=== PATIENT | female | born 1945 | race Caucasian/White ===

== ENCOUNTER → 2023-09-01 17:21 | Outpatient (REF) | payer MEDICARE, OTHER, SELFPAY | LOC: HWWDC 17:21 | PROVIDERS: ATTENDING PHYSICIAN Internal Medicine | DX: Z12.31 Encounter for screening mammogram for malignant neoplasm of breast (principal) | CPT/HCPCS: 77063; 77067 ==

== ENCOUNTER → 2024-11-03 10:08 | Outpatient (REF) | payer MEDICARE, OTHER, SELFPAY | LOC: HWWDC 10:08 | PROVIDERS: ATTENDING PHYSICIAN Obstetrics & Gynecology; PRIMARYCARE PHYSICIAN Internal Medicine | DX: Z12.31 Encounter for screening mammogram for malignant neoplasm of breast (principal) | CPT/HCPCS: 77063; 77067 ==

== ENCOUNTER → 2024-11-17 08:48 | Outpatient (REF) | payer MEDICARE, OTHER, SELFPAY | LOC: HWRAD 08:48 | PROVIDERS: ATTENDING PHYSICIAN Obstetrics & Gynecology; FAMILY PHYSICIAN Internal Medicine | DX: Z78.0 Asymptomatic menopausal state (principal) | CPT/HCPCS: 77080 ==

== ENCOUNTER 2025-03-05 06:20 | Day surgery (SDC) | payer MEDICARE, OTHER, SELFPAY ==
--- NOTE | 2025-01-16 12:29 | CM ---
CM reviewed medical records.
Demographics: Confirmed
Living situation: lives alone
Support Person Post Operatively: Daughter and son in law
History of
VN: No
SNF: No
Outpatient: Patient has not decided
Has patient purchased required equipment: No, encouraged patient to review [facility]
PCP: Petr
Pharmacy: [facility]
Post Operative Discharge Plan: [facility], and then transition to outpatient PT, Staying with family post operatively.
--- NOTE | 2025-01-29 15:05 | CM ---
CM spoke with patient at length regarding her outpatient physical therapy appointments. CM advised patient that outpatient professional sports scout will call with her PAT appointments. Patient will further receive a call from [facility] regarding her VN appointments
post operatively.
CM further referred patient to [facility] patient packet regarding her DME. Encouraged patient to contact [facility] to assist with DME.
[2025-02-16 14:01] VITALS: BMI 29.2
[2025-02-16 14:35] LABS: Hematocrit 38.6 % (37.0-47.0); Hemoglobin 12.8 g/dL (12.0-16.0); Mean Corp Hgb Conc. 33.2 g/dL (33.0-37.0); Mean Corpuscular Volume 88.1 fL (81.0-99.0); Platelet Count 241 10^3/uL (130-400); Red Cell Dist. Width 13.5 % (11.5-14.5)
[2025-02-16 15:31] LABS: ALT (SGPT) 18 U/L (0-35); AST (SGOT) 19 U/L (14-36); Albumin 4.2 g/dl (3.5-5.0); Alkaline Phosphatase 50 U/L (38-126); Blood Urea Nitrogen 18 mg/dl (7-17); Calcium 9.4 mg/dl (8.4-10.2); Carbon Dioxide 29 mmol/L (22-30); Chloride 101 mmol/L (98-107); Estimated Creatinine Clearance 78 ml/min; Glucose 100 mg/dl (70-99); Potassium 4.1 mmol/L (3.5-5.1); Sodium 136 mmol/L (135-145); Total Protein 6.9 g/dl (6.3-8.2); eGFR > 60.00
[2025-02-17 09:18] LABS: Glycohemoglobin (HgbA1c) 6.4 % (4.0-5.6)
--- NOTE | 2025-02-19 11:55 | VNURNOTE ---
Patient is scheduled for an elective L TKA on 03/05 - she is a same day patient with Dr Senior. Spoke with patient prior to surgery. Introduced role of [facility] Liaison. Patient reports that she lives alone but she will be staying with her daughter
Janeth in [facility] for a week or two post-op.
she has a commode, shower bench and rolling walker.
PCP is Dr Dimitrios Pearson
Discussed [facility] joint protocol and post surgical plans.
Reviewed that she will have VN services initially and will then start outpatient PT.
Patient selects [facility] for her home care needs and will go to [facility] for outpatient PT. Scheduled for 03/09 .
Patient is in agreement with plan and states that hre daughter will be home with her. Advised to bring RW with him day of surgery. Referral placed in [facility]. [facility] contact number provided.
Plan: [facility] per [facility] joint protocol 03/05 then outpt PT on 03/09
[2025-02-20 08:38] VITALS: BMI 29.2
[2025-03-05] VITALS (10 sets, daily range): BP systolic 116–172; BP diastolic 58–93; PULSE 58; O2SAT 100; BMI 29.2
[2025-03-05] MEDS: TYLENOL 650 MG PO (08:12)
[2025-03-05] MEDS: CELEBREX 200 MG PO (08:12)
[2025-03-05] MEDS: NORMOSOL-R/PLASMALYTE-A 1000 IV ×2 (08:12→12:47)
[2025-03-05 08:45] LABS: Glucose - Point of Care 119 mg/dl (70-99)
--- NOTE | 2025-03-05 09:25 | W.DS.TRANS ---
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
-
Discharge Instructions:
Sleep Apnea Risk Intermediate
Discharge Diagnosis/Procedures L TKA Dr Senior 03/05/25
Diet Diabetic, Carb Controlled
Activity With Walker
Driving Restrictions No driving
Bathing Restrictions OK to Shower
Other Services PT
Instructions:
Stand-Alone Forms: SDS Total Hip and Knee D/C
Changes to Home Medications: Yes
Discharge Medications:
DC Medications w/original date entered in [employer]
metformin 500 mg tablet 500 mg PO DAILY@1800 02/14/25
metoprolol succinate 100 mg tablet,extended release 24 hr 100 mg PO DAILY 02/14/25
rosuvastatin 20 mg tablet 20 mg PO HS 02/14/25
cefadroxil 500 mg capsule 500 mg PO BID infection prevention #14 caps 02/16/25
celecoxib 200 mg capsule 200 mg PO DAILY Anti-inflammatory #14 caps 02/16/25
dexamethasone 4 mg tablet 4 mg PO BID inflammation #6 tabs 02/16/25
famotidine 20 mg tablet 20 mg PO HS GI prophylaxis #30 tabs 02/16/25
gabapentin 300 mg capsule 300 mg PO HS sleep/pain #10 caps 02/16/25
hydrocodone 5 mg-acetaminophen 325 mg tablet 1 tab PO Q6H PRN 1 tab moderate pain or 2 if severe #30 tabs 02/16/25
mupirocin 2 % topical ointment 1 applic topical BID infection prevention #1 tube 02/16/25
ondansetron 4 mg disintegrating tablet 4 mg PO Q6H PRN n/v #20 tabs 02/16/25
Saccharomyces boulardii 250 mg capsule (Florastor) 250 mg PO BID #1 cap 03/05/25
amlodipine 2.5 mg tablet 2.5 mg PO DAILY #0 tabs 03/05/25
aspirin 325 mg tablet 325 mg PO DAILY blood clot prevention #1 tab 03/05/25
docusate sodium 100 mg capsule (Colace) 100 mg PO BID stool softner #1 cap 03/05/25
losartan 50 mg-hydrochlorothiazide 12.5 mg tablet 1 tab PO DAILY #0 tabs 03/05/25
magnesium hydroxide 400 mg/5 mL oral suspension (Milk of Magnesia) 30 ml PO HS PRN constipation #1 mL 03/05/25
sennosides 8.6 mg tablet (Senokot) 17.2 mg (2 x 8.6 mg) PO BID laxative #2 tabs 03/05/25
Home Medication Changes
mupirocin 2 % topical ointment 1 applic topical BID infection prevention #1 tube 02/16/25
ondansetron 4 mg disintegrating tablet 4 mg PO Q6H PRN n/v #20 tabs 02/16/25
Saccharomyces boulardii 250 mg capsule (Florastor) 250 mg PO BID #1 cap 03/05/25
amlodipine 2.5 mg tablet 2.5 mg PO DAILY #0 tabs 03/05/25
aspirin 325 mg tablet 325 mg PO DAILY blood clot prevention #1 tab 03/05/25
docusate sodium 100 mg capsule (Colace) 100 mg PO BID stool softner #1 cap 03/05/25
losartan 50 mg-hydrochlorothiazide 12.5 mg tablet 1 tab PO DAILY #0 tabs 03/05/25
magnesium hydroxide 400 mg/5 mL oral suspension (Milk of Magnesia) 30 ml PO HS PRN constipation #1 mL 03/05/25
sennosides 8.6 mg tablet (Senokot) 17.2 mg (2 x 8.6 mg) PO BID laxative #2 tabs 03/05/25
Pending Results: No
[2025-03-05 11:41] LABS: Glucose - Point of Care 123 mg/dl (70-99)
[2025-03-05] MEDS: ANCEF 5 IV (13:44)
[2025-03-05] MEDS: ROXICODONE 5 MG PO (13:45)
== END 2025-03-05 14:20 | disposition home or self-care (01) ==
LOC: SDS 06:20
PROVIDERS: ATTENDING PHYSICIAN Specialist; FAMILY PHYSICIAN Internal Medicine
DX: M17.12 Unilateral primary osteoarthritis, left knee (principal)
CPT/HCPCS: 27447; C1776; 36415; 73560; 80053; 82962; 83036; 85027; 87070; 93005; 97116; 97162; C1713